=== PATIENT | female | born 1935 ===

== ENCOUNTER 2018-10-03 08:50 | Outpatient (CLI) | payer MEDICARE, MEDICAID | END 2018-10-03 08:51 | disposition home or self-care (01) | LOC: C.USIC 08:51 ==

== ENCOUNTER 2018-10-03 09:03 | Outpatient (CLI) | payer MEDICARE, MEDICAID | END 2018-10-03 09:04 | disposition home or self-care (01) | LOC: C.LAB 09:03 ==